=== PATIENT | female | born 1960 | race Caucasian/White ===

== ENCOUNTER 2020-09-30 08:34 | Inpatient (IN) ==
--- NOTE | 2020-09-30 09:02 | DR.SOBA ---
HPI Time Seen Time Seen by Provider: 09/30/20 08:46 HPI Comment HPI Comment: PATIENT IS 59YR OLD FEMALE IN ER VIA EMS FOR INCREASING SOB, TACHYCARDIA, TACHYPNEA AND LOW OXYGEN SATURATIN. PATIENT SAID THIS AM SHE WAS WEAK AND TIRED. SHE FELT SHE WILL NOT MAKE IT TO THE BATHROOM IF SHE GETS UP. SHE IS NOT ABLE TO LAY DOWN. NO FEVER, OR CONGESTION. HAVE TIGHTNESS IN HER CHEST AND SOME WHEEZING. PATIENT HAVE NO KNOWN PAST MEDICAL HISTORY. DENIES EDEMA. Complaints Chief Complaint Doctors Comments: INCREASING SOB, TAKYCARDIA AND RAPID BREATHING FOR 0VER ONE WEEK. COVID-19 Coronavirus risk:travel/contact w/high risk person: No Has patient experienced Coronavirus symptoms: No Reviewed Nurses Notes Reviewed: Yes Source History Provided: Patient Mode of Arrival Mode of Arrival: EMS Duration Duration: Days Context Onset:: At Rest PE Risk Factors:: None History of:: None Currently on:: Neither Prehospital Care:: None Modifying Factors Worsens:: Exertion Improves:: Sitting Up Associated Signs and Symptoms Associated Signs and Symptoms: Wheeze If Chest Pain Quality: Pleuritic (PLEURIC CHEST TIGHTNESS.) Location: Substernal (CHEST TIGHTNESS.) If Cough Cough: None ROS Review of Systems Constitutional: See HPI, Weakness and Fatigue; negative Fever Eyes: No Symptoms Reported and See HPI; negative Blurred Vision and Diplopia ENTM: No Symptoms Reported and See HPI; negative Nose Discharge and Nose Congestion Respiratoy: See HPI, Moist Cough, Short of Breath and Wheezing Cardiovascular: No Symptoms Reported, See HPI, Chest Pain (PLEURITIS, TI GHTNESS.), Edema and Palpitations Gastrointestinal/Abdominal: No Symptoms Reported and See HPI; negative Abdominal Pain, Diarrhea and Vomiting Genitourinary: No Symptoms Reported and See HPI; negative Dysuria, Frequency and Hematuria Neurological: Weakness; negative Headache and Dizziness Musculoskeletal: No Symptoms Reported and See HPI; negative Back Pain and Muscle Pain Integumentary: No Symptoms Reported and See HPI; negative Change in Color, Rash and Juandice Hematologic/Lymphatic: No Symptoms Reported and See HPI; negative Easy Bruising and Swollen Glands Endocrine: No Symptoms Reported and See HPI; negative Increased Thirst and Increased Urine Psychiatric: No Symptoms Reported and See HPI All Other Systems: Reviewed and Negative PE Vital Signs Vitals: Temperature 97.9 F Pulse Rate 115 Respiratory Rate 39 Blood Pressure 142/95 O2 Sat by Pulse Oximetry 92 General Limitations: No Limitations General Appearance: Alert and In No Apparent Distress Head Head Exam: Normal Inspection Eyes Eye exam: Normal Appearance and PERRL ENT ENT Exam: Normal Exam, Normal Oropharynx, Normal External Ear Exam and TM's Normal Bilaterally Neck Neck Exam: Normal Inspection and Trachea Midline; negative Tenderness and Lymphadenopathy Chest Chest Inspection: Normal Inspection and Symmetric Chest Wall Rise; negative Tenderness Respiratory Respiratory Exam: Normal Lung Sounds Bilat and Respiratory Distress; negative Accessory Muscle Use and Chest Wall Tenderness Respiratory Exam: Bilateral: Wheezing and Bilateral: Rhonchi and Lower: Wheezing and Lower: Rhonchi Cardiovascular Cardiovascular Exam: Regular Rate, Normal Rhythm and Normal Heart Sounds; negative Systolic Murmur and Diastolic Murmur Abdominal Exam Abdominal Exam: Normal Inspection, Normal Bowel Sounds and Soft; negative Tenderness Extremities Extremities Exam: Normal Capillary Refill and Edema (TRACE.); negative Tenderness and Calf Tenderness Back Back Exam: Normal Inspection; negative (R) CVA Tenderness and (L) CVA Tenderness Neurologic Neurological Exam: Alert and Oriented X3; negative Motor Sensory Deficit Psychiatric Psychiatric Exam: Normal Affect and Normal Mood Skin Skin Exam: Warm, Dry, Intact and Normal Color MDM Differential Diagnosis Differential Diagnosis: Bronchitis, CHF, Dysrhythmia, Hyperventilation, Hyponatremia, Mycardial Infarction, Pneumonia, Pneumothorax, Pulmonary embolism and Respiratory Insufficiency COURSE Treatment Treatment: SEE ORDERS. HEPARIN DRIP AND LASIX 40MG IV IN ER. Education/Counseling Education/Counseling: Patient Educated On: Diagnosis ROR Labs Reviewed Laboratory Results Reviewed?: Yes Result Diagrams: 10/02/20 05:30 10/02/20 05:30 Laboratory: WBC 7.9 X10^3/uL (3.6-10.0) 09/30/20 09:19 RBC 5.12 X10^6/uL (3.5-5.4) 09/30/20 09:19 Hgb 16.3 g/dL (12.0-16.0) H 09/30/20 09:19 Hct 49.6 % (36.0-47.0) H 09/30/20 09:19 MCV 96.7 fL (80.0-100.0) 09/30/20 09:19 MCH 31.8 pg (27.0-34.0) 09/30/20 09:19 MCHC 32.9 g/dL (33.0-35.0) L 09/30/20 09:19 RDW 13.9 % (11.6-16.5) 09/30/20 09:19 Plt Count 178 X10^3/uL (150.0-450.0) 09/30/20 09:19 Plt Count Comment Adequate (ADEQUATE) 09/30/20 09:19 MPV 10.6 fL (7.4-11.0) 09/30/20 09:19 Neut % (Auto) 65.7 % (42.0-75.0) 09/30/20 09:19 Lymph % (Auto) 21.3 % (21.0-51.0) 09/30/20 09:19 [place] % (Auto) 8.9 % (0.0-13.0) 09/30/20 09:19 Eos % (Auto) 3.1 % (0.9-2.9) H 09/30/20 09:19 Baso % (Auto) 1.0 % (0.2-1.0) 09/30/20 09:19 Neut # (Auto) 5.2 x10^3/uL (2.2-4.8) H 09/30/20 09:19 Lymph # (Auto) 1.7 X10^3/uL (1.3-2.9) 09/30/20 09:19 [place] # (Auto) 0.7 x10^3/uL (0.3-0.8) 09/30/20 09:19 Eos # (Auto) 0.2 x10^3/uL (0.0-0.2) 09/30/20 09:19 Baso # (Auto) 0.1 X10^3/uL (0.0-0.1) 09/30/20 09:19 Absolute Nucleated RBC 0.3 /100WBC 09/30/20 09:19 Plt Clumps, EDTA Rare 09/30/20 09:19 Plt Morphology Comment Normal (NORMAL) 09/30/20 09:19 RBC Morphology Abnormal (NORMAL) A 09/30/20 09:19 PT 14.8 SECONDS (11.8-14.3) 09/30/20 09:19 INR Target Range - 09/30/20 09:19 INR 1.20 (0.8-1.3) 09/30/20 09:19 APTT 35.1 SECONDS (22.9-36.5) 09/30/20 09:19 PTT Comment - 09/30/20 09:19 D-Dimer 10.80 ug/ml (0.0-0.57) H* 09/30/20 09:19 Sample Site Rrad 09/30/20 10:22 ABG pH 7.480 (7.35-7.45) H 09/30/20 10:22 ABG pCO2 31.0 mmHg (35.0-45.0) L 09/30/20 10:22 ABG pO2 52.0 mmHg (80.0-100.0) L 09/30/20 10:22 ABG HCO3 23.1 mmol/L (22-26) 09/30/20 10:22 ABG O2 Saturation 89.0 % (90-100) L 09/30/20 10:22 ABG Base Excess 0.3 mmol/L (-2.0-2.0) 09/30/20 10:22 Manuel Test Pos 09/30/20 10:22 A-a Gradient 59.0 mmHg 09/30/20 10:22 FiO2 21.0 09/30/20 10:22 Blood Gas Comments Pt selvin well elj cdn 09/30/20 10:22 Sodium 144 mmol/L (136-145) 09/30/20 09:19 Corrected Sodium 145 mmol/L (136-145) 09/30/20 09:19 Potassium 4.2 mmol/L (3.5-5.1) 09/30/20 09:19 Chloride 108 mmol/L (98-107) H 09/30/20 09:19 Carbon Dioxide 21.5 mmol/L (21-32) 09/30/20 09:19 BUN 23 mg/dL (7-18) H 09/30/20 09:19 Creatinine 1.27 mg/dL (0.55-1.02) H 09/30/20 09:19 Est GFR (MDRD) Af Amer 55 (>60) L 09/30/20 09:19 Est GFR (MDRD) Non-Af 46 (>60) L 09/30/20 09:19 Glucose 144 mg/dL (65-99) H 09/30/20 09:19 Calcium 10.2 mg/dL (8.5-10.1) H 09/30/20 09:19 Corrected Calcium TNP 09/30/20 09:19 Total Bilirubin 0.40 mg/dL (0.2-1.0) 09/30/20 09:19 AST 24 Units/L (15-37) 09/30/20 09:19 ALT 34 Units/L (12-78) 09/30/20 09:19 Alkaline Phosphatase 145 Units/L (46-116) H 09/30/20 09:19 Creatine Kinase 30 Units/L (26-192) 09/30/20 11:42 CK-MB (CK-2) 1.5 ng/mL (0-4.0) 09/30/20 11:42 CK/CKMB % Calc 5.0 % (<4) 09/30/20 11:42 Troponin I 0.08 ng/mL (0-1.5) 09/30/20 11:42 B-Natriuretic Peptide 578 pg/mL (0-79) H* 09/30/20 09:19 Total Protein 8.1 g/dL (6.4-8.2) 09/30/20 09:19 Albumin 3.8 g/dL (3.4-5.0) 09/30/20 09:19 Globulin 4.3 g/dL (2.5-4.5) 09/30/20 09:19 Albumin/Globulin Ratio 0.9 Ratio (1.1-2.1) L 09/30/20 09:19 TSH 3rd Generation 0.045 uIU/mL (0.358-3.74) L 09/30/20 11:42 Specimen Type Random urine 09/30/20 09:51 Urine Color Yellow (YELLOW) 09/30/20 09:51 Urine Appearance Hazy (CLEAR) 09/30/20 09:51 Urine pH 5.0 (5.0 - 8.0) 09/30/20 09:51 Ur Specific [place] 1.020 (1.000-1.030) 09/30/20 09:51 Urine Protein 2+ (NEGATIVE) 09/30/20 09:51 Urine Glucose (UA) Negative (NEGATIVE) 09/30/20 09:51 Urine Ketones Negative (NEGATIVE) 09/30/20 09:51 Urine Occult Blood 2+ (NEGATIVE) 09/30/20 09:51 Urine Nitrite Negative (NEGATIVE) 09/30/20 09:51 Urine Bilirubin Negative (NEGATIVE) 09/30/20 09:51 Urine Urobilinogen Normal (NORMAL) 09/30/20 09:51 Ur Leukocyte Esterase 3+ (NEGATIVE) 09/30/20 09:51 Urine RBC 3-5 /HPF (0-3) A 09/30/20 09:51 Urine WBC 3-5 /HPF (0-5) 09/30/20 09:51 Ur Squamous Epith Cells Many /HPF (NEGATIVE) 09/30/20 09:51 Amorphous Sediment 1+ /HPF (NEGATIVE) 09/30/20 09:51 Urine Bacteria 2+ /HPF (NEGATIVE) 09/30/20 09:51 Ur Culture Indicated? No/not indicated 09/30/20 09:51 SARS CoV-2 RNA Rapid KIMBERLEY Negative (NEGATIVE) 09/30/20 11:34 XRAY XRAY Interpreted by: Radiologist (REPORT NOTED AND DISCUSSED WITH PATIENT.) and Self EKG Rate: 114 Loop: Normal Rhythm: ST Block: None Hypertrophy: None ST: Old, Ant, Infarct and Nonsp (INFERIOR ISCHEMIA.) Opioid Opioid Risk Tool Age (Chaim box if 16-45): No Total: 0 Total Score Risk Category: Low Risk Copyright: [facility] predicting aberrant behaviors Diagnosis Discharge Problem: Tachycardia, SOB (shortness of breath) on exertion, Bilateral pulmonary embolism CHF (congestive heart failure) Qualifiers: Heart failure type: unspecified Heart failure chronicity: unspecified Qualified Code(s): I50.9 - Heart failure, unspecified Instructions Forms: Precautions for COVID19 Patient Portal Social Distancing
[2020-09-30 09:36] LABS: BASOPHILS # (AUTO) 0.1 X10^3/uL (0.0-0.1); EOSINOPHILS # (AUTO) 0.2 x10^3/uL (0.0-0.2); EOSINOPHILS % (AUTO) 3.1 % (0.9-2.9); HEMATOCRIT 49.6 % (36.0-47.0); HEMOGLOBIN 16.3 g/dL (12.0-16.0); LYMPHOCYTES # (AUTO) 1.7 X10^3/uL (1.3-2.9); LYMPHOCYTES % (AUTO) 21.3 % (21.0-51.0); MEAN CORPUSCULAR HEMOGLOBIN 31.8 pg (27.0-34.0); MEAN CORPUSCULAR HGB CONC 32.9 g/dL (33.0-35.0); MEAN CORPUSCULAR VOLUME 96.7 fL (80.0-100.0); MEAN PLATELET VOLUME 10.6 fL (7.4-11.0); MONOCYTES # (AUTO) 0.7 x10^3/uL (0.3-0.8); MONOCYTES % (AUTO) 8.9 % (0.0-13.0); NEUTROPHILS # (AUTO) 5.2 x10^3/uL (2.2-4.8); NEUTROPHILS % (AUTO) 65.7 % (42.0-75.0); PLATELET COUNT 178 X10^3/uL (150.0-450.0); RED BLOOD COUNT 5.12 X10^6/uL (3.5-5.4); RED CELL DISTRIBUTION WIDTH 13.9 % (11.6-16.5)
--- NOTE | 2020-09-30 09:41 | RAD ---
HISTORYPer patient she has been short of breath for the past week. Per EMS patient was 85% on RA upon arrival and tachycardic. Pt stated no PMH and that she does not go to the doctor. Pt was noted to have dyspnea at this timeSTUDYCHEST, 1 VIEWCOMPARISONNoneTECHNIQUEAP view of the chestFINDINGSCardiac silhouette is enlarged. Mediastinal contours appear normal. No consolidation, segmental collapse, pleural effusion, or pneumothorax identified. Soft tissue attenuation limits evaluation.IMPRESSIONNo discernible acute pulmonary process.Electronically signed by: Deejay Barrientos (Sep 30, 2020 09:39:31)
[2020-09-30 09:43] LABS: WHITE BLOOD COUNT 7.9 X10^3/uL (3.6-10.0)
[2020-09-30 09:44] LABS: PLATELET MORPHOLOGY COMMENT NORMAL (NORMAL)
[2020-09-30 10:11] LABS: BLOOD UREA NITROGEN 23 mg/dL (7-18); CALCIUM 10.2 mg/dL (8.5-10.1); CARBON DIOXIDE 21.5 mmol/L (21-32); CHLORIDE 108 mmol/L (98-107); COR NA(FOR HYPERGLY) 145 mmol/L (136-145); CREATININE 1.27 mg/dL (0.55-1.02); SODIUM 144 mmol/L (136-145); TROPONIN I 0.07 ng/mL (0-1.5); eGFR NON BLACK RACES 46 (>60)
[2020-09-30 10:14] LABS: ALANINE AMINOTRANSFERASE 34 Units/L (12-78); ALBUMIN 3.8 g/dL (3.4-5.0); ALKALINE PHOSPHATASE 145 Units/L (46-116); ASPARTATE AMINO TRANSFERASE 24 Units/L (15-37); CKMB % 3.5 % (<4); CREATINE KINASE 37 Units/L (26-192); CREATINE KINASE MB 1.3 ng/mL (0-4.0); TOTAL PROTEIN 8.1 g/dL (6.4-8.2)
[2020-09-30 10:17] LABS: BILIRUBIN,URINE NEGATIVE (NEGATIVE); BLOOD/HEMOGLOBIN,URINE 2+ (NEGATIVE); GLUCOSE, URINE NEGATIVE (NEGATIVE); KETONES,URINE NEGATIVE (NEGATIVE); LEUKOCYTE ESTERASE ,URINE 3+ (NEGATIVE); NITRITES,URINE NEGATIVE (NEGATIVE); PROTEIN,URINE 2+ (NEGATIVE); UROBILINOGEN,URINE NORMAL (NORMAL)
[2020-09-30 10:29] LABS: ABG ALLEN TEST POS; ABG BASE EXCESS 0.3 mmol/L (-2.0-2.0); ABG HCO3 23.1 mmol/L (22-26)
[2020-09-30 10:31] LABS: APPEARANCE,URINE HAZY (CLEAR); COLOR,URINE YELLOW (YELLOW)
[2020-09-30 10:32] LABS: AMORPHOUS SEDIMENT,UR 1+ /HPF (NEGATIVE); BACTERIA,URINE 2+ /HPF (NEGATIVE); SQUAMOUS EPITHELIAL CELL,UR MANY /HPF (NEGATIVE)
[2020-09-30 12:19] LABS: CREATINE KINASE MB 1.5 ng/mL (0-4.0); TROPONIN I 0.08 ng/mL (0-1.5)
[2020-09-30] MEDS ORDERED: NS 100 ML IV 100 ML IV ONE (13:05)
--- NOTE | 2020-09-30 13:58 | CT ---
HISTORYSOB for a week, tachycardia, hypoxemiaSTUDYCTA CHEST with IV contrastCOMPARISONChest x-ray from same dayTECHNIQUEMultiple axial images of the chest were obtained from the thoracic inlet to the upper abdomen after the administration of IV contrast. 3D reconstructions utilizing axial MIPS imaging was performed and reviewed. Dose reduction techniques including Automated Exposure Control (AEC) and adjustment of mA and kV were utilized.FINDINGSProminent bilateral pulmonary emboli are seen filling the distal aspects of the main pulmonary arteries and multiple proximal and distal pulmonary artery branches in the upper and lower lungs. There is cardiomegaly and RV/LV is 2.0. No pericardial effusion is seen. PA/AO is 1.0.Area of alveolar and ground-glass opacity in the right middle lobe is probable pulmonary infarction. Ground-glass and interstitial densities in the CP angles is probable atelectasis. No pleural effusion or pneumothorax. Thoracic aorta is normal in size. Thyromegaly.IMPRESSIONLarge bilateral pulmonary emboli with prominent embolus burden and likely right heart strain. Probable pulmonary infarction in the posterior aspect of the right middle lobe.Electronically signed by: Rom Neumann (Sep 30, 2020 13:56:58)
[2020-09-30] MEDS ORDERED: LASIX IVP ONE ×2 (14:52→16:20)
[2020-09-30] MEDS ORDERED: HEPARIN SODIUM INJ 5000 UNITS ONE ×2 (14:57→15:19)
[2020-09-30] MEDS ORDERED: HEPARIN SODIUM IN D5W 25,000 UNITS/500 ML BAG IV ONE (14:58)
[2020-09-30 15:11] VITALS: BMI 72.2
[2020-09-30] MEDS ORDERED: HEPARIN SODIUM INJ 5000 UNITS IVP ONE (15:24)
[2020-09-30] MEDS: HEPARIN SODIUM IN D5W 25,000 UNITS/500 ML BAG IV PRN (15:28)
[2020-09-30 18:03] LABS: CREATINE KINASE MB 1.8 ng/mL (0-4.0); TROPONIN I 0.1 ng/mL (0-1.5)
[2020-10-01 00:28] LABS: CKMB % 7.2 % (<4); CREATINE KINASE MB 3.1 ng/mL (0-4.0); TROPONIN I 0.11 ng/mL (0-1.5)
[2020-10-01 03:46] LABS: BASOPHILS # (AUTO) 0.1 X10^3/uL (0.0-0.1); BASOPHILS % (AUTO) 0.8 % (0.2-1.0); EOSINOPHILS # (AUTO) 0.2 x10^3/uL (0.0-0.2); EOSINOPHILS % (AUTO) 3.3 % (0.9-2.9); HEMATOCRIT 46.1 % (36.0-47.0); HEMOGLOBIN 14.9 g/dL (12.0-16.0); LYMPHOCYTES # (AUTO) 1.8 X10^3/uL (1.3-2.9); LYMPHOCYTES % (AUTO) 25.9 % (21.0-51.0); MEAN CORPUSCULAR HEMOGLOBIN 31.4 pg (27.0-34.0); MEAN CORPUSCULAR HGB CONC 32.2 g/dL (33.0-35.0); MEAN CORPUSCULAR VOLUME 97.3 fL (80.0-100.0); MEAN PLATELET VOLUME 10.3 fL (7.4-11.0); MONOCYTES # (AUTO) 0.6 x10^3/uL (0.3-0.8); MONOCYTES % (AUTO) 8.1 % (0.0-13.0); NEUTROPHILS # (AUTO) 4.4 x10^3/uL (2.2-4.8); NEUTROPHILS % (AUTO) 61.9 % (42.0-75.0); PLATELET COUNT 137 X10^3/uL (150.0-450.0); RED BLOOD COUNT 4.74 X10^6/uL (3.5-5.4); WHITE BLOOD COUNT 7.1 X10^3/uL (3.6-10.0)
[2020-10-01 03:54] LABS: ALANINE AMINOTRANSFERASE 29 Units/L (12-78); ALBUMIN 3.3 g/dL (3.4-5.0); ALKALINE PHOSPHATASE 130 Units/L (46-116); ASPARTATE AMINO TRANSFERASE 20 Units/L (15-37); BLOOD UREA NITROGEN 24 mg/dL (7-18); CALCIUM 9.3 mg/dL (8.5-10.1); CARBON DIOXIDE 22.4 mmol/L (21-32); CHLORIDE 108 mmol/L (98-107); COR CA(FOR HYPOALB) 9.9 mg/dL (8.5-10.1); COR NA(FOR HYPERGLY) 145 mmol/L (136-145); CREATININE 1.16 mg/dL (0.55-1.02); SODIUM 144 mmol/L (136-145); TOTAL PROTEIN 7.1 g/dL (6.4-8.2); eGFR NON BLACK RACES 51 (>60)
[2020-10-01] MEDS ORDERED: HEPARIN SODIUM IN D5W 25,000 UNITS/500 ML BAG IV ONE ×2 (07:12→23:17)
[2020-10-01] MEDS: HEPARIN SODIUM IN D5W 25,000 UNITS/500 ML BAG IV PRN ×2 (07:20→23:25)
[2020-10-01 10:18] LABS: CKMB % 7.8 % (<4); CREATINE KINASE MB 2.8 ng/mL (0-4.0); TROPONIN I 0.05 ng/mL (0-1.5)
--- NOTE | 2020-10-01 13:48 | VAS ---
HISTORYPT HX PESTUDYLOWER EXT VENOUS, BILATERALCOMPARISONNoneTECHNIQUEMultiple rea scale and color flow Doppler images of the deep venous system were obtained of the right and left lower extremity.FINDINGSThe deep venous system of the right and left lower extremities were evaluated from the level of the common femoral vein through the popliteal vein. Normal color flow and augmentation can be observed. In addition, normal compression is seen throughout the deep venous system.IMPRESSIONNegative for DVT bilateral lower extremity.Electronically signed by: MARKO QUIROGA (Oct 01, 2020 13:46:41)
--- NOTE | 2020-10-01 17:16 | DR.H&P ---
H&P - History & Physical for Day of: H&P Date: 09/30/20 - Chief Complaint Chief Complaint: SOB, WEAKNESS - History of Present Illness History of Present Illness: PT IS 59 WF ER ADMISSION WITH BILATERAL PE'S. 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 PT REPORTS NO KNOWN CAD OR HTN. PT CO PMH OF OA. PT HAD CTA OF CHEST IN ER, COVID 19-. PT DENIES ANY CCC OR FEVER. - Past Medical History Past Medical History: Anxiety, Arthritis - Past Surgical History Surgical History: Ortho Surgery - Family History Family Medical History: Cancer, Coronary Artery Disease, Heart Failure - Social History Does patient currently use any type of tobacco product: No Have you used tobacco products in the last 12 months: No Type of Tobacco Use: None Alcohol Use: None Risks, benefits, and alternatives of opioids discussed: No Prescription drug monitoring program results: PDMP reviewed and no concerns identified - Medications Home Medications: No Known Drug Allergies Allergy (Verified 09/30/20 08:50) CONTINUE taking the following medications NK 09/30/20 [History] - Review of Systems Constitutional: Weakness Eyes: No Symptoms Reported ENT: No Symptoms Reported Respiratory: Shortness of Breath, SOB with Excertion Cardiovascular: Edema Gastrointestinal: No Symptoms Reported, Vomiting Musculoskeletal: No Symptoms Reported Skin: No Symptoms Reported Neurological: Weakness - Physical Exam Vital Signs: Temperature 97.9 F Pulse Rate [Right Radial] 103 Pulse Rate 115 Respiratory Rate 18 Blood Pressure [Right Arm] 138/86 Blood Pressure 142/95 O2 Sat by Pulse Oximetry 98 Oriented: Normal Eyes: Normal Ear: Normal Nose: Normal Throat: Normal Respiratory: RLL Diminished, LLL Diminished Cardiovascular: Normal, Edema : Normal Auscultation: Bowel Sounds: Normal Palpation: Normal Tenderness: Normal Skin: Decreased [place] Musculoskeletal: Normal Psychiatric: Anxiety Affect: Anxious Speech Pattern: Clear, Appropriate - Assessment/Plan (1) Bilateral pulmonary embolism Status: Acute Plan: ADMIT, HEPARIN DRIP. SERIAL CE, EKG, CTA CHEST ON ADMISSION. SUPPLEMENTAL O2, ABG ON ADMISSION. CARDIAC MONITORING, BP MONITORING (2) Tachycardia Status: Acute (3) SOB (shortness of breath) on exertion Status: Acute - Allergies Allergies/Adverse Reactions: Allergies Allergy/AdvReac Type Severity Reaction Status Date / Time No Known Drug Allergies Allergy Verified 09/30/20 08:50
[2020-10-01 17:50] LABS: CKMB % 4.9 % (<4); CREATINE KINASE MB 2.7 ng/mL (0-4.0); TROPONIN I 0.05 ng/mL (0-1.5)
[2020-10-01 23:40] LABS: CKMB % 6.5 % (<4); CREATINE KINASE MB 3.3 ng/mL (0-4.0); TROPONIN I 0.05 ng/mL (0-1.5)
[2020-10-02 06:20] LABS: BASOPHILS % (AUTO) 0.6 % (0.2-1.0); EOSINOPHILS # (AUTO) 0.4 x10^3/uL (0.0-0.2); EOSINOPHILS % (AUTO) 6.1 % (0.9-2.9); HEMATOCRIT 44.1 % (36.0-47.0); HEMOGLOBIN 14.7 g/dL (12.0-16.0); LYMPHOCYTES # (AUTO) 1.6 X10^3/uL (1.3-2.9); LYMPHOCYTES % (AUTO) 25.3 % (21.0-51.0); MEAN CORPUSCULAR HEMOGLOBIN 32.2 pg (27.0-34.0); MEAN CORPUSCULAR HGB CONC 33.4 g/dL (33.0-35.0); MEAN CORPUSCULAR VOLUME 96.6 fL (80.0-100.0); MEAN PLATELET VOLUME 11.1 fL (7.4-11.0); MONOCYTES # (AUTO) 0.6 x10^3/uL (0.3-0.8); MONOCYTES % (AUTO) 8.8 % (0.0-13.0); NEUTROPHILS # (AUTO) 3.8 x10^3/uL (2.2-4.8); NEUTROPHILS % (AUTO) 59.2 % (42.0-75.0); PLATELET COUNT 115 X10^3/uL (150.0-450.0); RED BLOOD COUNT 4.56 X10^6/uL (3.5-5.4); RED CELL DISTRIBUTION WIDTH 13.9 % (11.6-16.5); WHITE BLOOD COUNT 6.5 X10^3/uL (3.6-10.0)
[2020-10-02 07:21] LABS: ALANINE AMINOTRANSFERASE 29 Units/L (12-78); ALBUMIN 3.2 g/dL (3.4-5.0); ALKALINE PHOSPHATASE 129 Units/L (46-116); ASPARTATE AMINO TRANSFERASE 30 Units/L (15-37); BLOOD UREA NITROGEN 28 mg/dL (7-18); CALCIUM 9.4 mg/dL (8.5-10.1); CARBON DIOXIDE 20.9 mmol/L (21-32); CHLORIDE 107 mmol/L (98-107); COR NA(FOR HYPERGLY) 143 mmol/L (136-145); CREATININE 1.05 mg/dL (0.55-1.02); SODIUM 142 mmol/L (136-145); TOTAL PROTEIN 7.1 g/dL (6.4-8.2); eGFR NON BLACK RACES 57 (>60)
[2020-10-02 07:22] LABS: CKMB % 4.1 % (<4); CREATINE KINASE MB 3.1 ng/mL (0-4.0); TROPONIN I 0.03 ng/mL (0-1.5)
[2020-10-02 14:42] LABS: ERYTHROCYTE SEDIMENTATION RATE 9 MM/HOUR (0-20)
[2020-10-02] MEDS: HEPARIN SODIUM IN D5W 25,000 UNITS/500 ML BAG IV PRN (16:38)
[2020-10-02] MEDS: ASPIRIN EC 81 MG PO SCH (18:28)
[2020-10-02] MEDS ORDERED: NORVASC TAB 5 MG ONE (18:31)
[2020-10-02] MEDS: ZESTRIL TAB 5 MG PO SCH (18:38)
[2020-10-02 19:56] LABS: FREE T4 (FREE THYROXINE) 1.6 ng/dL (0.76-1.46); TSH (3RD GENERATION) 0.048 uIU/mL (0.358-3.74)
[2020-10-02] MEDS: LIPITOR TAB 10 MG PO SCH (21:24)
[2020-10-03 06:14] LABS: ABG ALLEN TEST POSS; ABG BASE EXCESS -1.3 mmol/L (-2.0-2.0); ABG HCO3 24.3 mmol/L (22-26)
[2020-10-03 07:00] LABS: CHOL/HDL RATIO 3.8 (0.0-5.0); CKMB % 5.4 % (<4); CREATINE KINASE MB 2.6 ng/mL (0-4.0); TROPONIN I 0.02 ng/mL (0-1.5)
--- NOTE | 2020-10-03 09:47 | RAD ---
HISTORYSOBSTUDYCHEST, 1 VIEWCOMPARISONPortable chest September 30, 2020.FINDINGSThe trachea is midline. The cardiac silhouette is mildly enlarged.. The lungs are clear without focal infiltrate or effusion. The bony thorax is unremarkable.IMPRESSIONMild cardiomegaly but no acute cardiopulmonary abnormalities and no change from September 30, 2020.Electronically signed by: MARKO QUIROGA (Oct 03, 2020 09:46:12)
[2020-10-03] MEDS: ASPIRIN EC 81 MG PO SCH (10:00)
[2020-10-03] MEDS: ZESTRIL TAB 5 MG PO SCH (10:00)
[2020-10-03] MEDS: ELIQUIS PO SCH ×2 (13:55→21:43)
--- NOTE | 2020-10-03 14:10 | CT ---
HISTORYPESTUDYCTA CHESTCOMPARISONSame day chest radiograph. CTA chest from 09/30/2020.TECHNIQUECTA chest protocol with axial images from the thoracic inlet to upper abdomen with IV contrast. Sagittal and coronal reformats and MIP images were created. Automated exposure control was utilized.FINDINGSThe visualized thyroid gland appears enlarged. Non-atherosclerotic normal caliber thoracic aorta. The pulmonary artery trunk is enlarged at 35 mm medial-lateral image 39 series 4. Bilateral pulmonary emboli are present and appears similar to prior study. Contrast timing is mildly more suboptimal than on prior study but no significant change is identified. There is again reversed bowing of the interventricular septum and reflux of contrast into the IVC. Dilated right ventricle compared to the left. No pathologic adenopathy is identified in the thorax. Visualized upper abdomen appears acutely benign. Patchy right middle lobe lateral segment opacity appears less conspicuous than prior. Mild scattered subsegmental atelectasis. No pleural effusion or pneumothorax. The trachea and mainstem bronchi appear patent. T11 hemangioma.IMPRESSIONSimilar appearance of bilateral pulmonary emboli. Findings again suggesting right heart strain.Less conspicuous right middle lobe patchy opacity may represent resolving pneumonia or pulmonary infarct.Electronically signed by: Deejay Barrientos (Oct 03, 2020 14:08:40)
[2020-10-03] MEDS: LIPITOR TAB 10 MG PO SCH (21:43)
[2020-10-04 06:27] LABS: ABG BASE EXCESS -0.3 mmol/L (-2.0-2.0); ABG HCO3 25.4 mmol/L (22-26)
[2020-10-04 06:28] LABS: ABG ALLEN TEST POSS
[2020-10-04] MEDS: ELIQUIS PO SCH ×2 (08:36→20:45)
[2020-10-04] MEDS: ASPIRIN EC 81 MG PO SCH (08:36)
[2020-10-04] MEDS: ZESTRIL TAB 5 MG PO SCH (08:36)
--- NOTE | 2020-10-04 10:16 | PCM.PROG ---
Progress Note Progress Note for Day of Date of Exam: 10/04/20 Subjective Subjective: Pt is a 59 year old female admitted for bilateral pulmonary embolism with hypoxia. This morning she is sitting in recliner, reports her breathing has improved, and is currently on 2L nasal cannula. No acute events overnight. Labs/imaging: Wbc 5.2, Hgb 13.7, Plt 108, Na 142, K 5.1, Cr 0.89, Glucose 101. ABG: PH 7.36, PC02 45, P02 66, HC03 25, 02 SAT 92%, FI02 21%. Echo: EF 71%, CTA: Similar appearance of bilateral pulmonary emboli. Findings again suggesting right heart strain. Less conspicuous right middle lobe patchy opacity may represent resolving pneumonia or pulmonary infarct. Bilateral Lower Extremity doppler negative for DVT. Cardiac enzymes and troponin negative. She was changed from heparin drip to Eliquis 5mg BID and is tolerating well. Pt has been NPO after midnight and will have CTAP today for further evaluation. Hypercoagulation panel and tumor markers pending. Will wean supplemental oxygen as tolerated, otherwise continue with current plan of care, monitor and follow up labs/imaging in the morning. Past Medical Family Social History Past Med/Fam/Surg Hx: No changes since H&P Allergies: Allergies No Known Drug Allergies Allergy (Verified 09/30/20 08:50) Review of Systems ROS: No change since H&P Vital Signs and I&O's Vital Signs: Temperature 98.1 F Pulse Rate [Right Radial] 76 Pulse Rate 115 Respiratory Rate 18 Blood Pressure [Right Arm] 100/59 Blood Pressure 142/95 O2 Sat by Pulse Oximetry 98 Intake and Output: Intake & Output 10/01/20 10/02/20 10/03/20 10/04/20 23:59 23:59 23:59 23:59 Intake Total 3445 / 3445 2654 / 2654 736 / 736 Output Total 750 / 750 Balance 2695 / 2695 2654 / 2654 736 / 736 Physical Exam Oriented: Normal Eyes: Normal Ear: Normal Nose: Normal Throat: Normal Respiratory: Diminished Cardiovascular: Normal and Edema : Normal Auscultation: Bowel Sounds: Normal Tenderness: Normal Skin: Decreased [place]urgur Musculoskeletal: Normal Psychiatric: Anxiety Affect: Anxious Speech Pattern: Clear and Appropriate Laboratory and Diagnostics Result Diagrams: 10/04/20 10:13 10/04/20 10:13 Labs: Laboratory WBC 6.5 X10^3/uL (3.6-10.0) 10/02/20 05:30 RBC 4.56 X10^6/uL (3.5-5.4) 10/02/20 05:30 Hgb 14.7 g/dL (12.0-16.0) 10/02/20 05:30 Hct 44.1 % (36.0-47.0) 10/02/20 05:30 MCV 96.6 fL (80.0-100.0) 10/02/20 05:30 MCH 32.2 pg (27.0-34.0) 10/02/20 05:30 MCHC 33.4 g/dL (33.0-35.0) 10/02/20 05:30 RDW 13.9 % (11.6-16.5) 10/02/20 05:30 Plt Count 115 X10^3/uL (150.0-450.0) L 10/02/20 05:30 Plt Count Comment Adequate (ADEQUATE) 09/30/20 09:19 MPV 11.1 fL (7.4-11.0) H 10/02/20 05:30 Neut % (Auto) 59.2 % (42.0-75.0) 10/02/20 05:30 Lymph % (Auto) 25.3 % (21.0-51.0) 10/02/20 05:30 [place] % (Auto) 8.8 % (0.0-13.0) 10/02/20 05:30 Eos % (Auto) 6.1 % (0.9-2.9) H 10/02/20 05:30 Baso % (Auto) 0.6 % (0.2-1.0) 10/02/20 05:30 Neut # (Auto) 3.8 x10^3/uL (2.2-4.8) 10/02/20 05:30 Lymph # (Auto) 1.6 X10^3/uL (1.3-2.9) 10/02/20 05:30 [place] # (Auto) 0.6 x10^3/uL (0.3-0.8) 10/02/20 05:30 Eos # (Auto) 0.4 x10^3/uL (0.0-0.2) H 10/02/20 05:30 Baso # (Auto) 0.0 X10^3/uL (0.0-0.1) 10/02/20 05:30 Absolute Nucleated RBC 0.1 /100WBC 10/02/20 05:30 Plt Clumps, EDTA Rare 09/30/20 09:19 Plt Morphology Comment Normal (NORMAL) 09/30/20 09:19 RBC Morphology Normal (NORMAL) 09/30/20 09:19 ESR 9 MM/HOUR (0-20) 10/01/20 11:48 PT 15.1 SECONDS (11.8-14.3) 10/01/20 03:35 INR Target Range - 10/01/20 03:35 INR 1.22 (0.8-1.3) 10/01/20 03:35 APTT 73.2 SECONDS (22.9-36.5) H 10/03/20 11:51 PTT Comment - 10/03/20 11:51 D-Dimer 10.80 ug/ml (0.0-0.57) H* 09/30/20 09:19 Sample Site R rad 10/04/20 06:20 ABG pH 7.360 (7.35-7.45) 10/04/20 06:20 ABG pCO2 45.0 mmHg (35.0-45.0) 10/04/20 06:20 ABG pO2 66.0 mmHg (80.0-100.0) L 10/04/20 06:20 ABG HCO3 25.4 mmol/L (22-26) 10/04/20 06:20 ABG O2 Saturation 92.0 % (90-100) 10/04/20 06:20 ABG Base Excess -0.3 mmol/L (-2.0-2.0) 10/04/20 06:20 Manuel Test Poss 10/04/20 06:20 A-a Gradient 27.0 mmHg 10/04/20 06:20 FiO2 21.0 10/04/20 06:20 Blood Gas Comments Carmen well kb 10/04/20 06:20 Sodium 142 mmol/L (136-145) 10/02/20 05:30 Corrected Sodium 143 mmol/L (136-145) 10/02/20 05:30 Potassium 4.1 mmol/L (3.5-5.1) 10/02/20 05:30 Chloride 107 mmol/L (98-107) 10/02/20 05:30 Carbon Dioxide 20.9 mmol/L (21-32) L 10/02/20 05:30 BUN 28 mg/dL (7-18) H 10/02/20 05:30 Creatinine 1.05 mg/dL (0.55-1.02) H 10/02/20 05:30 Est GFR (MDRD) Af Amer > 60 (>60) 10/02/20 05:30 Est GFR (MDRD) Non-Af 57 (>60) L 10/02/20 05:30 Glucose 122 mg/dL (65-99) H 10/02/20 05:30 Calcium 9.4 mg/dL (8.5-10.1) 10/02/20 05:30 Corrected Calcium 10.0 mg/dL (8.5-10.1) 10/02/20 05:30 Magnesium 2.0 mg/dL (1.7-2.9) 09/30/20 19:42 Total Bilirubin 0.30 mg/dL (0.2-1.0) 10/02/20 05:30 AST 30 Units/L (15-37) 10/02/20 05:30 ALT 29 Units/L (12-78) 10/02/20 05:30 Alkaline Phosphatase 129 Units/L (46-116) H 10/02/20 05:30 Lactate Dehydrogenase 287 Units/L (81-234) H 10/02/20 19:00 Creatine Kinase 48 Units/L (26-192) 10/03/20 06:00 CK-MB (CK-2) 2.6 ng/mL (0-4.0) 10/03/20 06:00 CK/CKMB % Calc 5.4 % (<4) 10/03/20 06:00 Troponin I 0.02 ng/mL (0-1.5) 10/03/20 06:00 C-Reactive Protein 6.00 mg/L (0-3.0) H 10/01/20 11:48 B-Natriuretic Peptide 578 pg/mL (0-79) H* 09/30/20 09:19 Total Protein 7.1 g/dL (6.4-8.2) 10/02/20 05:30 Albumin 3.2 g/dL (3.4-5.0) L 10/02/20 05:30 Globulin 3.9 g/dL (2.5-4.5) 10/02/20 05:30 Albumin/Globulin Ratio 0.8 Ratio (1.1-2.1) L 10/02/20 05:30 Triglycerides 163 mg/dL (0-150) H 10/03/20 06:00 Cholesterol 144 mg/dL (0-200) 10/03/20 06:00 LDL Cholesterol, Calc 73 mg/dL (0-100) 10/03/20 06:00 HDL Cholesterol 38 mg/dL (40-60) L 10/03/20 06:00 Cholesterol/HDL Ratio 3.8 (0.0-5.0) 10/03/20 06:00 Free T4 1.60 ng/dL (0.76-1.46) H 10/02/20 19:00 TSH 3rd Generation 0.048 uIU/mL (0.358-3.74) L 10/02/20 19:00 Specimen Type Random urine 09/30/20 09:51 Urine Color Yellow (YELLOW) 09/30/20 09:51 Urine Appearance Hazy (CLEAR) 09/30/20 09:51 Urine pH 5.0 (5.0 - 8.0) 09/30/20 09:51 Ur Specific [place] 1.020 (1.000-1.030) 09/30/20 09:51 Urine Protein 2+ (NEGATIVE) 09/30/20 09:51 Urine Glucose (UA) Negative (NEGATIVE) 09/30/20 09:51 Urine Ketones Negative (NEGATIVE) 09/30/20 09:51 Urine Occult Blood 2+ (NEGATIVE) 09/30/20 09:51 Urine Nitrite Negative (NEGATIVE) 09/30/20 09:51 Urine Bilirubin Negative (NEGATIVE) 09/30/20 09:51 Urine Urobilinogen Normal (NORMAL) 09/30/20 09:51 Ur Leukocyte Esterase 3+ (NEGATIVE) 09/30/20 09:51 Urine RBC 3-5 /HPF (0-3) A 09/30/20 09:51 Urine WBC 3-5 /HPF (0-5) 09/30/20 09:51 Ur Squamous Epith Cells Many /HPF (NEGATIVE) 09/30/20 09:51 Amorphous Sediment 1+ /HPF (NEGATIVE) 09/30/20 09:51 Urine Bacteria 2+ /HPF (NEGATIVE) 09/30/20 09:51 Ur Culture Indicated? No/not indicated 09/30/20 09:51 Stool Description 125 g. formed/brown 10/03/20 03:00 Stl Occult Blood (IFOB) Negative (NEGATIVE) 10/03/20 03:00 SARS CoV-2 RNA Rapid KIMBERLEY Negative (NEGATIVE) 09/30/20 11:34 Plan (1) Bilateral pulmonary embolism: Status: Acute Plan: Eliquis 5mg BID SUPPLEMENTAL O2 CARDIAC MONITORING, BP MONITORING (2) Tachycardia: Status: Acute (3) SOB (shortness of breath) on exertion: Status: Acute
[2020-10-04 10:19] LABS: BASOPHILS % (AUTO) 0.8 % (0.2-1.0); EOSINOPHILS # (AUTO) 0.4 x10^3/uL (0.0-0.2); EOSINOPHILS % (AUTO) 8.2 % (0.9-2.9); HEMATOCRIT 40.9 % (36.0-47.0); HEMOGLOBIN 13.7 g/dL (12.0-16.0); LYMPHOCYTES # (AUTO) 1.3 X10^3/uL (1.3-2.9); LYMPHOCYTES % (AUTO) 24.4 % (21.0-51.0); MEAN CORPUSCULAR HEMOGLOBIN 32.4 pg (27.0-34.0); MEAN CORPUSCULAR HGB CONC 33.5 g/dL (33.0-35.0); MEAN CORPUSCULAR VOLUME 96.7 fL (80.0-100.0); MEAN PLATELET VOLUME 9.8 fL (7.4-11.0); MONOCYTES # (AUTO) 0.5 x10^3/uL (0.3-0.8); MONOCYTES % (AUTO) 9.8 % (0.0-13.0); NEUTROPHILS % (AUTO) 56.8 % (42.0-75.0); PLATELET COUNT 108 X10^3/uL (150.0-450.0); RED BLOOD COUNT 4.23 X10^6/uL (3.5-5.4); RED CELL DISTRIBUTION WIDTH 14.1 % (11.6-16.5); WHITE BLOOD COUNT 5.2 X10^3/uL (3.6-10.0)
[2020-10-04 10:32] LABS: ALANINE AMINOTRANSFERASE 26 Units/L (12-78); ALBUMIN 3.2 g/dL (3.4-5.0); ALKALINE PHOSPHATASE 121 Units/L (46-116); ASPARTATE AMINO TRANSFERASE 26 Units/L (15-37); BLOOD UREA NITROGEN 21 mg/dL (7-18); CALCIUM 9.2 mg/dL (8.5-10.1); CARBON DIOXIDE 29.9 mmol/L (21-32); CHLORIDE 108 mmol/L (98-107); COR CA(FOR HYPOALB) 9.8 mg/dL (8.5-10.1); CREATININE 0.89 mg/dL (0.55-1.02); SODIUM 142 mmol/L (136-145); TOTAL PROTEIN 6.9 g/dL (6.4-8.2); eGFR NON BLACK RACES > 60 (>60)
[2020-10-04] MEDS ORDERED: NS 100 ML IV 100 ML IV ONE (13:17)
--- NOTE | 2020-10-04 14:28 | CT ---
HISTORYpt positive pulmonary emboli, r/o metastic cancerSTUDYABDOMEN/PELVIS W W/O CONCOMPARISONCT chest dated October 03, 2020.TECHNIQUEMultiple axial images of the abdomen and pelvis were obtained from the lung bases to the pubic symphysis before and after the administration of 100 cc Omnipaque 350 IV contrast. Dose reduction techniques including Automated Exposure Control (AEC) and adjustment of mA and kV were utilized.Study limited secondary to patient body habitus.FINDINGSRight greater than left pulmonary emboli are again seen within the pulmonary arteries. This appears unchanged given technique. Bibasilar scarring versus atelectasis. The visualized portions of the lung bases are unremarkable . The liver, spleen, pancreas, kidneys, and adrenal glands are unremarkable in their CT appearance. The gallbladder is unremarkable in its CT appearance . No significant mesenteric lymphadenopathy or stranding can be observed. No free fluid or free air is seen within the abdomen. Diverticulosis without CT evidence to suggest diverticulitis. The large and small bowel are otherwise unremarkable. The appendix is not well seen, but no secondary signs to suggest acute appendicitis. The uterus is surgically absent. No suspicious adnexal lesions. The urinary bladder is grossly unremarkable. No obvious filling defects are seen on this limited study within the venous structures of the abdomen and proximal lower extremities. Degenerative changes of the spine. No aggressive osseous lesions.IMPRESSIONOne. No obvious CT evidence of acute abdominal/pelvic pathology on this limited study.Two. Stable appearing bilateral pulmonary emboli.Three. Other chronic findings as above.Electronically signed by: KATJA CAMACHO (Oct 04, 2020 14:27:17)
[2020-10-04] MEDS: LIPITOR TAB 10 MG PO SCH (20:45)
[2020-10-05 06:27] LABS: BASOPHILS % (AUTO) 0.3 % (0.2-1.0); EOSINOPHILS # (AUTO) 0.4 x10^3/uL (0.0-0.2); EOSINOPHILS % (AUTO) 8.1 % (0.9-2.9); HEMATOCRIT 39.5 % (36.0-47.0); HEMOGLOBIN 13.2 g/dL (12.0-16.0); LYMPHOCYTES # (AUTO) 1.1 X10^3/uL (1.3-2.9); LYMPHOCYTES % (AUTO) 22.2 % (21.0-51.0); MEAN CORPUSCULAR HEMOGLOBIN 32.3 pg (27.0-34.0); MEAN CORPUSCULAR HGB CONC 33.3 g/dL (33.0-35.0); MEAN CORPUSCULAR VOLUME 96.8 fL (80.0-100.0); MEAN PLATELET VOLUME 10.5 fL (7.4-11.0); MONOCYTES # (AUTO) 0.5 x10^3/uL (0.3-0.8); MONOCYTES % (AUTO) 9.4 % (0.0-13.0); NEUTROPHILS # (AUTO) 2.9 x10^3/uL (2.2-4.8); PLATELET COUNT 114 X10^3/uL (150.0-450.0); RED BLOOD COUNT 4.08 X10^6/uL (3.5-5.4); RED CELL DISTRIBUTION WIDTH 14.2 % (11.6-16.5); WHITE BLOOD COUNT 4.9 X10^3/uL (3.6-10.0)
[2020-10-05 06:37] LABS: ALANINE AMINOTRANSFERASE 34 Units/L (12-78); ALBUMIN 3.1 g/dL (3.4-5.0); ALKALINE PHOSPHATASE 116 Units/L (46-116); ASPARTATE AMINO TRANSFERASE 29 Units/L (15-37); BLOOD UREA NITROGEN 19 mg/dL (7-18); CALCIUM 9.3 mg/dL (8.5-10.1); CARBON DIOXIDE 25.8 mmol/L (21-32); CHLORIDE 108 mmol/L (98-107); SODIUM 142 mmol/L (136-145); TOTAL PROTEIN 6.7 g/dL (6.4-8.2); eGFR NON BLACK RACES > 60 (>60)
[2020-10-05] MEDS: ASPIRIN EC 81 MG PO SCH (08:51)
[2020-10-05] MEDS: ELIQUIS PO SCH ×2 (08:51→21:35)
[2020-10-05] MEDS: ZESTRIL TAB 5 MG PO SCH (08:51)
[2020-10-05 09:37] LABS: PROTEIN C ACTIVITY 153 % (83-168)
--- NOTE | 2020-10-05 12:45 | PCM.PROG ---
Progress Note Progress Note for Day of Date of Exam: 10/05/20 Subjective Subjective: Pt is a 59 year old female admitted for bilateral pulmonary embolism with hypoxia. She is sitting in recliner this morning and reports her breathing has significantly improved. She is currently on room air after being weaned off 2L nasal cannula. No acute events overnight. Labs/imaging: Wbc 4.9, Hgb 13.2, Plt 114, Na 142, K 4.4, Cr 0.80, Glucose 105. Echo: EF 71%, CTAP: One. No obvious CT evidence of acute abdominal/pelvic pathology on this limited study. Two. Stable appearing bilateral pulmonary emboli. Three. Other chronic findings as above. CTA: Similar appearance of bilateral pulmonary emboli. Findings again suggesting right heart strain. Less conspicuous right middle lobe patchy opacity may represent resolving pneumonia or pulmonary infarct. Bilateral Lower Extremity doppler negative for DVT. Cardiac enzymes and troponin negative. She is currently on Eliquis 5mg BID and is tolerating well. Hypercoagulation panel and tumor markers pending. Continue with current plan of care, monitor, and follow up labs/imaging in the morning. Past Medical Family Social History Past Med/Fam/Surg Hx: No changes since H&P Allergies: Allergies No Known Drug Allergies Allergy (Verified 09/30/20 08:50) Review of Systems ROS: No change since H&P Vital Signs and I&O's Vital Signs: Temperature 98.3 F Pulse Rate [Right Radial] 75 Pulse Rate 115 Respiratory Rate 18 Blood Pressure [Right Arm] 127/57 Blood Pressure 142/95 O2 Sat by Pulse Oximetry 97 Intake and Output: Intake & Output 10/02/20 10/03/20 10/04/20 10/05/20 23:59 23:59 23:59 23:59 Intake Total 2654 / 2654 736 / 736 360 / 360 Balance 2654 / 2654 736 / 736 360 / 360 Physical Exam Oriented: Normal Eyes: Normal Ear: Normal Nose: Normal Throat: Normal Respiratory: Diminished Cardiovascular: Normal and Edema : Normal Auscultation: Bowel Sounds: Normal Tenderness: Normal Skin: Decreased Turgur Musculoskeletal: Normal Psychiatric: Anxiety Affect: Anxious Speech Pattern: Clear and Appropriate Laboratory and Diagnostics Result Diagrams: 10/05/20 05:46 10/05/20 05:46 Labs: Laboratory WBC 4.9 X10^3/uL (3.6-10.0) 10/05/20 05:46 RBC 4.08 X10^6/uL (3.5-5.4) 10/05/20 05:46 Hgb 13.2 g/dL (12.0-16.0) 10/05/20 05:46 Hct 39.5 % (36.0-47.0) 10/05/20 05:46 MCV 96.8 fL (80.0-100.0) 10/05/20 05:46 MCH 32.3 pg (27.0-34.0) 10/05/20 05:46 MCHC 33.3 g/dL (33.0-35.0) 10/05/20 05:46 RDW 14.2 % (11.6-16.5) 10/05/20 05:46 Plt Count 114 X10^3/uL (150.0-450.0) L 10/05/20 05:46 Plt Count Comment Adequate (ADEQUATE) 09/30/20 09:19 MPV 10.5 fL (7.4-11.0) 10/05/20 05:46 Neut % (Auto) 60.0 % (42.0-75.0) 10/05/20 05:46 Lymph % (Auto) 22.2 % (21.0-51.0) 10/05/20 05:46 [place] % (Auto) 9.4 % (0.0-13.0) 10/05/20 05:46 Eos % (Auto) 8.1 % (0.9-2.9) H 10/05/20 05:46 Baso % (Auto) 0.3 % (0.2-1.0) 10/05/20 05:46 Neut # (Auto) 2.9 x10^3/uL (2.2-4.8) 10/05/20 05:46 Lymph # (Auto) 1.1 X10^3/uL (1.3-2.9) L 10/05/20 05:46 [place] # (Auto) 0.5 x10^3/uL (0.3-0.8) 10/05/20 05:46 Eos # (Auto) 0.4 x10^3/uL (0.0-0.2) H 10/05/20 05:46 Baso # (Auto) 0.0 X10^3/uL (0.0-0.1) 10/05/20 05:46 Absolute Nucleated RBC 0.1 /100WBC 10/05/20 05:46 Plt Clumps, EDTA Rare 09/30/20 09:19 Plt Morphology Comment Normal (NORMAL) 09/30/20 09:19 RBC Morphology Normal (NORMAL) 09/30/20 09:19 ESR 9 MM/HOUR (0-20) 10/01/20 11:48 PT 15.1 SECONDS (11.8-14.3) 10/01/20 03:35 INR Target Range - 10/01/20 03:35 INR 1.22 (0.8-1.3) 10/01/20 03:35 APTT 73.2 SECONDS (22.9-36.5) H 10/03/20 11:51 PTT Comment - 10/03/20 11:51 D-Dimer 10.80 ug/ml (0.0-0.57) H* 09/30/20 09:19 Prot C Funct Activity 153 % (83-168) 10/01/20 11:48 APC Resistance Ratio 3.46 (>=2.00) 10/01/20 11:48 Protein S Activity 107 % (57-131) 10/01/20 11:48 Sample Site R rad 10/04/20 06:20 ABG pH 7.360 (7.35-7.45) 10/04/20 06:20 ABG pCO2 45.0 mmHg (35.0-45.0) 10/04/20 06:20 ABG pO2 66.0 mmHg (80.0-100.0) L 10/04/20 06:20 ABG HCO3 25.4 mmol/L (22-26) 10/04/20 06:20 ABG O2 Saturation 92.0 % (90-100) 10/04/20 06:20 ABG Base Excess -0.3 mmol/L (-2.0-2.0) 10/04/20 06:20 Manuel Test Poss 10/04/20 06:20 A-a Gradient 27.0 mmHg 10/04/20 06:20 FiO2 21.0 10/04/20 06:20 Blood Gas Comments Carmen well kb 10/04/20 06:20 Sodium 142 mmol/L (136-145) 10/05/20 05:46 Corrected Sodium TNP 10/05/20 05:46 Potassium 4.4 mmol/L (3.5-5.1) 10/05/20 05:46 Chloride 108 mmol/L (98-107) H 10/05/20 05:46 Carbon Dioxide 25.8 mmol/L (21-32) 10/05/20 05:46 BUN 19 mg/dL (7-18) H 10/05/20 05:46 Creatinine 0.80 mg/dL (0.55-1.02) 10/05/20 05:46 Est GFR (MDRD) Af Amer > 60 (>60) 10/05/20 05:46 Est GFR (MDRD) Non-Af > 60 (>60) 10/05/20 05:46 Glucose 105 mg/dL (65-99) H 10/05/20 05:46 Calcium 9.3 mg/dL (8.5-10.1) 10/05/20 05:46 Corrected Calcium 10.0 mg/dL (8.5-10.1) 10/05/20 05:46 Magnesium 2.0 mg/dL (1.7-2.9) 09/30/20 19:42 Total Bilirubin 0.30 mg/dL (0.2-1.0) 10/05/20 05:46 AST 29 Units/L (15-37) 10/05/20 05:46 ALT 34 Units/L (12-78) 10/05/20 05:46 Alkaline Phosphatase 116 Units/L (46-116) 10/05/20 05:46 Lactate Dehydrogenase 287 Units/L (81-234) H 10/02/20 19:00 Creatine Kinase 48 Units/L (26-192) 10/03/20 06:00 CK-MB (CK-2) 2.6 ng/mL (0-4.0) 10/03/20 06:00 CK/CKMB % Calc 5.4 % (<4) 10/03/20 06:00 Troponin I 0.02 ng/mL (0-1.5) 10/03/20 06:00 C-Reactive Protein 6.00 mg/L (0-3.0) H 10/01/20 11:48 B-Natriuretic Peptide 578 pg/mL (0-79) H* 09/30/20 09:19 Total Protein 6.7 g/dL (6.4-8.2) 10/05/20 05:46 Albumin 3.1 g/dL (3.4-5.0) L 10/05/20 05:46 Globulin 3.6 g/dL (2.5-4.5) 10/05/20 05:46 Albumin/Globulin Ratio 0.9 Ratio (1.1-2.1) L 10/05/20 05:46 Triglycerides 163 mg/dL (0-150) H 10/03/20 06:00 Cholesterol 144 mg/dL (0-200) 10/03/20 06:00 LDL Cholesterol, Calc 73 mg/dL (0-100) 10/03/20 06:00 HDL Cholesterol 38 mg/dL (40-60) L 10/03/20 06:00 Cholesterol/HDL Ratio 3.8 (0.0-5.0) 10/03/20 06:00 Homocysteine 19 umol/L (0-15) H 10/01/20 11:48 Free T4 1.60 ng/dL (0.76-1.46) H 10/02/20 19:00 TSH 3rd Generation 0.048 uIU/mL (0.358-3.74) L 10/02/20 19:00 Specimen Type Random urine 09/30/20 09:51 Urine Color Yellow (YELLOW) 09/30/20 09:51 Urine Appearance Hazy (CLEAR) 09/30/20 09:51 Urine pH 5.0 (5.0 - 8.0) 09/30/20 09:51 Ur Specific [place] 1.020 (1.000-1.030) 09/30/20 09:51 Urine Protein 2+ (NEGATIVE) 09/30/20 09:51 Urine Glucose (UA) Negative (NEGATIVE) 09/30/20 09:51 Urine Ketones Negative (NEGATIVE) 09/30/20 09:51 Urine Occult Blood 2+ (NEGATIVE) 09/30/20 09:51 Urine Nitrite Negative (NEGATIVE) 09/30/20 09:51 Urine Bilirubin Negative (NEGATIVE) 09/30/20 09:51 Urine Urobilinogen Normal (NORMAL) 09/30/20 09:51 Ur Leukocyte Esterase 3+ (NEGATIVE) 09/30/20 09:51 Urine RBC 3-5 /HPF (0-3) A 09/30/20 09:51 Urine WBC 3-5 /HPF (0-5) 09/30/20 09:51 Ur Squamous Epith Cells Many /HPF (NEGATIVE) 09/30/20 09:51 Amorphous Sediment 1+ /HPF (NEGATIVE) 09/30/20 09:51 Urine Bacteria 2+ /HPF (NEGATIVE) 09/30/20 09:51 Ur Culture Indicated? No/not indicated 09/30/20 09:51 Stool Description 125 g. formed/brown 10/03/20 03:00 Stl Occult Blood (IFOB) Negative (NEGATIVE) 10/03/20 03:00 SARS CoV-2 RNA Rapid [place] Negative (NEGATIVE) 09/30/20 11:34 Plan (1) Bilateral pulmonary embolism: Status: Acute Plan: Eliquis 5mg BID SUPPLEMENTAL O2 CARDIAC MONITORING, BP MONITORING (2) Tachycardia: Status: Acute (3) SOB (shortness of breath) on exertion: Status: Acute
[2020-10-05] MEDS: LIPITOR TAB 10 MG PO SCH (21:35)
[2020-10-06 06:21] LABS: BASOPHILS % (AUTO) 0.5 % (0.2-1.0); EOSINOPHILS # (AUTO) 0.4 x10^3/uL (0.0-0.2); EOSINOPHILS % (AUTO) 6.9 % (0.9-2.9); HEMATOCRIT 39.6 % (36.0-47.0); HEMOGLOBIN 13.1 g/dL (12.0-16.0); LYMPHOCYTES # (AUTO) 1.2 X10^3/uL (1.3-2.9); MEAN CORPUSCULAR HEMOGLOBIN 32.1 pg (27.0-34.0); MEAN CORPUSCULAR HGB CONC 33.1 g/dL (33.0-35.0); MEAN CORPUSCULAR VOLUME 96.9 fL (80.0-100.0); MEAN PLATELET VOLUME 10.5 fL (7.4-11.0); MONOCYTES # (AUTO) 0.5 x10^3/uL (0.3-0.8); MONOCYTES % (AUTO) 8.3 % (0.0-13.0); NEUTROPHILS # (AUTO) 3.7 x10^3/uL (2.2-4.8); NEUTROPHILS % (AUTO) 63.3 % (42.0-75.0); PLATELET COUNT 110 X10^3/uL (150.0-450.0); RED BLOOD COUNT 4.09 X10^6/uL (3.5-5.4); RED CELL DISTRIBUTION WIDTH 14.1 % (11.6-16.5); WHITE BLOOD COUNT 5.8 X10^3/uL (3.6-10.0)
[2020-10-06 06:30] LABS: ALANINE AMINOTRANSFERASE 37 Units/L (12-78); ALKALINE PHOSPHATASE 110 Units/L (46-116); ASPARTATE AMINO TRANSFERASE 35 Units/L (15-37); BLOOD UREA NITROGEN 18 mg/dL (7-18); CALCIUM 9.2 mg/dL (8.5-10.1); CARBON DIOXIDE 26.8 mmol/L (21-32); CHLORIDE 108 mmol/L (98-107); SODIUM 142 mmol/L (136-145); TOTAL PROTEIN 6.5 g/dL (6.4-8.2); eGFR NON BLACK RACES > 60 (>60)
[2020-10-06 08:06] LABS: ANTI-NUCLEAR ANTIBODY TEST None Detected (None Detected)
[2020-10-06] MEDS: ZESTRIL TAB 5 MG PO SCH (09:27)
[2020-10-06] MEDS: ASPIRIN EC 81 MG PO SCH (09:27)
[2020-10-06] MEDS: ELIQUIS PO SCH ×2 (09:28→21:22)
[2020-10-06 11:31] LABS: PTT-D HEPARIN NEUT 42
[2020-10-06 11:33] LABS: THROMBIN TIME 92.5
[2020-10-06 11:34] LABS: REPTILASE TIME 14.5
[2020-10-06] MEDS: LIPITOR TAB 10 MG PO SCH (21:22)
--- NOTE | 2020-10-07 05:58 | RAD ---
PROCEDURE: Chest X-ray 1 View .HISTORY: Pulmonary embolus and short of breath.TECHNIQUE: AP view .COMPARISON: 10/03/2020.TECHNICAL QUALITY: Satisfactory .FINDINGS:Heart size appears increased compared to previous study.Mediastinum and hilar regions show no masses or lymphadenopathy .Normal central vascularity .No pulmonary consolidation, masses, pleural fluid, or pneumothorax .No acute bony abnormality .IMPRESSION:1. Increased heart size since previous exam.2. No other evidence of active disease.Electronically signed by: Deacon Beard (Oct 07, 2020 05:57:20)
[2020-10-07 06:57] LABS: ABG ALLEN TEST POS; ABG BASE EXCESS 1.5 mmol/L (-2.0-2.0); ABG HCO3 26.6 mmol/L (22-26)
[2020-10-07 06:58] LABS: BASOPHILS % (AUTO) 0.5 % (0.2-1.0); EOSINOPHILS # (AUTO) 0.4 x10^3/uL (0.0-0.2); EOSINOPHILS % (AUTO) 7.7 % (0.9-2.9); HEMATOCRIT 40.3 % (36.0-47.0); HEMOGLOBIN 13.4 g/dL (12.0-16.0); LYMPHOCYTES # (AUTO) 1.1 X10^3/uL (1.3-2.9); LYMPHOCYTES % (AUTO) 22.5 % (21.0-51.0); MEAN CORPUSCULAR HEMOGLOBIN 32.2 pg (27.0-34.0); MEAN CORPUSCULAR HGB CONC 33.1 g/dL (33.0-35.0); MEAN CORPUSCULAR VOLUME 97.1 fL (80.0-100.0); MEAN PLATELET VOLUME 10.3 fL (7.4-11.0); MONOCYTES # (AUTO) 0.4 x10^3/uL (0.3-0.8); MONOCYTES % (AUTO) 7.7 % (0.0-13.0); NEUTROPHILS # (AUTO) 3.1 x10^3/uL (2.2-4.8); NEUTROPHILS % (AUTO) 61.6 % (42.0-75.0); PLATELET COUNT 114 X10^3/uL (150.0-450.0); RED BLOOD COUNT 4.15 X10^6/uL (3.5-5.4); RED CELL DISTRIBUTION WIDTH 14.3 % (11.6-16.5)
[2020-10-07 07:17] LABS: ALANINE AMINOTRANSFERASE 37 Units/L (12-78); ALBUMIN 3.1 g/dL (3.4-5.0); ALKALINE PHOSPHATASE 104 Units/L (46-116); ASPARTATE AMINO TRANSFERASE 27 Units/L (15-37); BLOOD UREA NITROGEN 14 mg/dL (7-18); CALCIUM 9.1 mg/dL (8.5-10.1); CARBON DIOXIDE 25.3 mmol/L (21-32); CHLORIDE 108 mmol/L (98-107); COR CA(FOR HYPOALB) 9.8 mg/dL (8.5-10.1); CREATININE 0.82 mg/dL (0.55-1.02); SODIUM 142 mmol/L (136-145); TOTAL PROTEIN 6.8 g/dL (6.4-8.2); eGFR NON BLACK RACES > 60 (>60)
[2020-10-07 08:08] VITALS: BP 141/67
[2020-10-07] MEDS: ASPIRIN EC 81 MG PO SCH (09:19)
[2020-10-07] MEDS: ELIQUIS PO SCH (09:20)
[2020-10-07] MEDS: ZESTRIL TAB 5 MG PO SCH (09:57)
[2020-10-08 09:15] LABS: PROTHROMBIN G20210A Negative
== END 2020-10-07 12:55 | disposition home or self-care (01) | DRG 176 ==
LOC: ER 08:34 → MED/SURG 16:35 → OBS 10-01 15:46
PROVIDERS: ADMIT Internal Medicine; ATTEND Internal Medicine
DX: Z20.822 Contact with and (suspected) exposure to COVID-19; R03.0 Elevated blood-pressure reading, without diagnosis of hypertension; E66.01 Morbid (severe) obesity due to excess calories; R60.0 Localized edema; E78.2 Mixed hyperlipidemia; I26.99 Other pulmonary embolism without acute cor pulmonale; I50.9 Heart failure, unspecified; R79.1 Abnormal coagulation profile; R94.31 Abnormal electrocardiogram [ECG] [EKG]; R00.0 Tachycardia, unspecified; R06.02 Shortness of breath; R79.82 Elevated C-reactive protein (CRP)